=== PATIENT | male | born 1930 | race Caucasian/White ===

== ENCOUNTER 2018-02-01 16:36 | Inpatient (IN) | payer MEDICARE, OTHER ==
[~2018-02-01] VITALS: Ht 167.6 cm; Wt 71.7 kg
[~2018-02-01 16:36] MED LIST: ACETAMINOPHEN-1 EAC1 PO; AMLODIPINE BESYL5 MG PO; ASPIR 8181 MG PO; ASPIRIN325 PO; LIPITOR20 MG PO; NITROGLYCERIN0.4 MG SUBLING; NORVASC5 MG PO; OMEPRAZOLE40 MG PO; PLAVIX 75 MG TA75 M1 PO; PRINIVIL20 MG PO; TESSALON PERLE100 MG PO; TOPROL XL50 MG PO; VENTOLIN HFA 1818 GM INH
[2018-02-01 16:40] VITALS: BP 185/97
[2018-02-01] MEDS ORDERED: NORVASC5 MG PO (17:09)
[2018-02-01] MEDS ORDERED: PLAVIX 75 MG TA75 M1 PO (17:09)
[2018-02-01] MEDS ORDERED: LIPITOR 20 MG T20 M1 PO (17:09)
[2018-02-01] MEDS ORDERED: TIMOLOL GL0.5 %/5 M1 OPHTHALMIC (17:10)
[2018-02-01 20:15] VITALS: BP 185/97
[2018-02-01 20:30] VITALS: BP 134/56
[2018-02-02 08:00] VITALS: BP 129/45
[2018-02-02 12:00] VITALS: BP 119/68
[2018-02-02 16:00] VITALS: BP 163/77
[2018-02-02 18:40] LABS: ABSOLUTE BASOPHILS 0.1 thou/uL (0.0-0.2); ABSOLUTE EOSINOPHILS 0.3 thou/uL (0.0-0.7); ABSOLUTE LYMPHOCYTES 1.6 thou/uL (0.8-5.3); ABSOLUTE MONOCYTES 0.7 thou/uL (0.0-1.2); ABSOLUTE NEUTROPHILS 4.2 thou/uL (1.6-8.1); BASOPHILS 1.1 %; EOSINOPHILS 3.9 %; HEMATOCRIT 39.7 % (42.0-52.0); HEMOGLOBIN 13.3 gm/dL (14.0-18.0); MCH 31.7 pg (26.0-34.0); MCHC 33.5 g/dL (28.0-37.0); MCV 94.6 fL (80.0-100.0); MONOCYTES 9.8 %; NUCLEATED RBCS 0 /100WBC; PLATELET COUNT* 215 thou/uL (150-400); POLYS 62.2 %; RDW-CV 13.4 % (10.5-14.5); WBC 6.8 thou/uL (4.0-11.0)
[2018-02-03] VITALS: BP 136/64
[2018-02-03 04:00] VITALS: BP 136/61
[2018-02-03 07:49] LABS: CALCIUM 8.7 mg/dL (8.5-10.1); CREATININE 1.7 mg/dL (0.6-1.3); POTASSIUM 4.3 mmol/L (3.5-5.1)
[2018-02-03 08:55] VITALS: BP 162/51
[2018-02-03 12:00] VITALS: BP 147/77
--- NOTE | 2018-02-03 14:58 | EKG ---
[place] [address] ELECTROCARDIOGRAM REPORT Name: LUZMA ALCAZAR Room: [address] ADM IN M.R.#: [id number] Admission: 02/01/18 Attend Phys: Mary Anne Mitchell Discharge: Date of : 32 Report #: [id number] THIS REPORT FOR: //name// [facility] Test Date: 2018-02-02 Test Time: 12:27:49 Pat Name: LUZMA ALCAZAR Department: Room: [address] Gender: M Deputy County Clerk: GURDEEP CHAKRABORTY : 1930 Requested By: Teofilo Golden Order Number: [id number] Dari MD: Evelio Sharif Measurements Intervals [place] Rate: 67 P: 45 ND: 245 QRS: -37 QRSD: 92 T: 7 QT: 387 QTc: 409 Interpretive Statements Sinus rhythm Prolonged ND interval Inferior infarct, old, possible Low voltage in precordial leads Compared to ECG 12/11/2016 16:52:51 Ventricular premature complex(es) no longer present Myocardial infarct finding still present Electronically Signed On 02-03-2018 14:58:23 CDT by Evelio Sharif [email or web address] <ELECTRONICALLY SIGNED> By: Evelio Sharif MD, FACC 02/03/18 1458 1227 1227 Evelio Sharif MD, FACC /EPI
[2018-02-03 16:00] VITALS: BP 151/76
[2018-02-03 19:09] LABS: CALCIUM 8.8 mg/dL (8.5-10.1); CREATININE 1.8 mg/dL (0.6-1.3); MAGNESIUM 1.7 mg/dL (1.8-2.4); POTASSIUM 4.5 mmol/L (3.5-5.1)
[2018-02-04] VITALS: BP 164/76
[2018-02-04 04:45] LABS: CALCIUM 8.9 mg/dL (8.5-10.1); CREATININE 1.6 mg/dL (0.6-1.3); POTASSIUM 4.5 mmol/L (3.5-5.1)
[2018-02-04 08:45] VITALS: BP 165/77
[2018-02-04 12:00] VITALS: BP 130/84
[2018-02-04 16:38] VITALS: BP 163/76
[2018-02-04 19:42] VITALS: BP 160/78
[2018-02-04 23:51] VITALS: BP 99/54
[2018-02-05 04:38] VITALS: BP 128/62
[2018-02-05 07:50] VITALS: BP 160/76
[2018-02-05 12:00] VITALS: BP 146/76
[2018-02-05 16:14] VITALS: BP 146/76
[2018-02-05 16:28] VITALS: BP 146/76
--- NOTE | 2018-02-05 16:53 | EKG ---
[place] [address] ELECTROCARDIOGRAM REPORT Name: LUZMA ALCAZAR Room: [address] ADM IN M.R.#: [id number] Admission: 02/01/18 Attend Phys: Mary Anne Mitchell Discharge: Date of : 31 Report #: [id number] THIS REPORT FOR: //name// [facility] Test Date: 2018-02-03 Test Time: 18:07:33 Pat Name: LUZMA ALCAZAR Department: Room: [address] Gender: M Deputy Commissioner: : 1930 Requested By: Mona Newton Order Number: [id number] Dari MD: Luzma Pizarro Measurements Intervals [place] Rate: 94 P: 46 NV: 212 QRS: -38 QRSD: 90 T: 33 QT: 372 QTc: 466 Interpretive Statements Sinus rhythm Ventricular bigeminy Borderline prolonged NV interval Probable left atrial enlargement Left axis deviation Low voltage, precordial leads Probable anteroseptal infarct, old Baseline wander in lead(s) V4 Compared to ECG 02/02/2018 12:27:49 Ventricular premature complex(es) now present Left-axis deviation now present Myocardial infarct finding still present Electronically Signed On 02-05-2018 16:53:19 CDT by Luzma Pizarro [email or web address] <ELECTRONICALLY SIGNED> By: Luzma Pizarro MD, [facility] 02/05/18 1653 06 06 Luzma Pizarro MD, [facility] /EPI
--- NOTE | 2018-02-08 11:39 | CON ---
[address] [address] CONSULTATION Name: LUZMA ALCAZAR Room: [address] IN M.R.#: [id number] Admission: 02/01/18 Attend Phys: Mary Anne Mitchell Discharge: 02/05/18 Date of : 31 Report #: [id number] THIS REPORT FOR: //name// CC: Rodrigo Lira MD [facility] Teofilo Golden Cardiology Consultation INDICATION: Bradycardia. HISTORY OF PRESENT ILLNESS: The patient is a very pleasant 87-year-old gentleman with history of coronary artery disease status post coronary artery bypass grafting remotely. He was admitted to the hospital with acute onset posterior left knee pain. Venous Doppler shows no evidence of blood clot. Arterial Dopplers are pending. The area behind his knee is slightly tender without obvious swelling. He has significant peripheral vascular disease involving the left lower extremity with claudication on half a block ambulation. Pulses are not palpable in the foot. The right leg, he does not have claudication with. His pulses are palpable in the right leg. He is not having any resting pain in the lower extremity to suggest resting claudication. He denies chest pain. He had possibly an episode of bradycardia this morning, although telemetry and EKG show no evidence of bradycardia. The patient is currently not bradycardic. He is on appropriate cardiac medications for his coronary artery disease. PAST MEDICAL HISTORY: 1. Coronary artery disease. 2. Coronary artery bypass grafting remotely 3. Peripheral vascular disease. 4. Hypertension. 5. Hyperlipidemia. ALLERGIES: None documented. HOME MEDICATIONS: Amlodipine 5 mg daily, atorvastatin 20 mg at bedtime, Plavix 75 mg daily, lisinopril 40 mg daily, metoprolol succinate 50 mg daily, Nitrostat sublingual p.r.n., timolol eyedrops. FAMILY HISTORY: Noncontributory. SOCIAL HISTORY: The patient quit smoking in 2005. He does not drink alcohol. REVIEW OF SYSTEMS: A 14-point review of systems is positive for claudication. He reports dyspnea without orthopnea or paroxysmal nocturnal dyspnea. 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 Otherwise, [place] [address] CONSULTATION Name: LUZMA ALCAZAR Room: [address]#: [id number] Admission: 02/01/18 Attend Phys: Mary Anne Mitchell Discharge: 02/05/18 Date of : 31 Report #: [id number] systems unremarkable. PHYSICAL EXAMINATION: VITAL SIGNS: Stable. Blood pressure 119/68, pulse 85 and regular. 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 HEENT: Head is normocephalic, atraumatic. Extraocular muscles intact. Mucous membranes are moist. NECK: Shows no jugular venous distention. Cannot appreciate bruit. CHEST: Reveals clear lung millan without wheezes or rales. CARDIAC: Reveals a regular rhythm, normal S1, S2. I do not appreciate gallop or murmur. ABDOMEN: Reveals normal bowel sounds. The abdomen is soft and nontender. EXTREMITIES: Shows no edema. Peripheral pulses in the right foot are 2+. Peripheral pulses left foot are absent. There is no gangrene or discoloration. The feet are warm to touch. DIAGNOSTIC DATA: A 12-lead EKG shows sinus rhythm without acute ST or T-wave abnormality. IMPRESSION AND RECOMMENDATIONS: 1. Possible bradycardia, presently resolved. We would not pursue this further at this time. 2. Coronary artery disease, presently stable. 3. Peripheral vascular disease. The patient appears to have stable claudication. Continue Plavix and aspirin. 4. Hypertension, adequately controlled on current regimen. 5. Hyperlipidemia. Continue atorvastatin at current dose. At this time, the patient appears stable from cardiac standpoint. I do not plan any further evaluation at this time. <ELECTRONICALLY SIGNED> By: Evelio Sharif MD, FACC 02/08/18 1139 1540 0300Microsina Sharif MD, FACC /nt
--- NOTE | 2018-02-19 12:02 | H ---
[address] [address] HISTORY AND PHYSICAL Name: LUZMA ALCAZAR Room: [address] IN .R.#: [id number] Admission: 02/01/18 Attend Phys: Mary Anne Mitchell Discharge: 02/05/18 Date of : 31 Report #: [id number] THIS REPORT FOR: //name// CC: Rodrigo Golden REQUESTING PHYSICIAN: Teofilo Golden DO. REASON FOR CONSULTATION: Peripheral vascular disease. HISTORY OF PRESENT ILLNESS: The patient is a very pleasant 87-year-old white male who is deaf. He presents to the ER with left knee pain. He was unable to stand on at home. He was brought to the ER. Further evaluation revealed likely some orthopedic issues, but also occluded left SFA and popliteal artery. It is difficult to assess whether or not he has been having claudication, but it does not sound like he has been walking very much either. Again, due to him being deaf, it is difficult to get a full history. He does not have family with him today that can translate for me. Remainder of history is obtained from chart. PAST MEDICAL HISTORY: Per the chart, coronary artery disease, status post bypass; neck surgery; hypertension; deaf. HOME MEDICATIONS: Include Codeine, aspirin, Norvasc, Lipitor, Plavix, Prinivil, Toprol and Nitrostat. FAMILY HISTORY: Noncontributory. SOCIAL HISTORY: The patient denies tobacco or drug use. He does drink alcohol occasionally. ALLERGIES: No known drug allergies. PHYSICAL EXAMINATION: GENERAL: The patient is in no acute distress. He is alert and oriented. VITAL SIGNS: Afebrile. Vital signs stable. HEENT: Normocephalic, atraumatic. NECK: Supple. HEART: Regular. LUNGS: Clear. ABDOMEN: Soft, nontender, nondistended. EXTREMITIES: Warm and well perfused. His feet are pink and viable bilaterally. Cannot palpate pedal pulses bilaterally. NEUROLOGIC: Grossly intact. ASSESSMENT: 1. Deaf patient. 2. Orthopedic issues, [place] [address] HISTORY AND PHYSICAL Name: LUZMA ALCAZAR Room: [address] IN [facility]#: [id number] Admission: 02/01/18 Attend Phys: Mary Anne Mitchell Discharge: 02/05/18 Date of : 31 Report #: [id number] 3. Occluded left superficial femoral artery and popliteal on arterial duplex. PLAN: 1. We will obtain a CTA aorta with runoff to evaluate peripheral vascular disease further. 2. Likely will need revascularization if orthopedic procedure planned to make sure there is adequate blood flow for healing. <ELECTRONICALLY SIGNED> By: Wong Mora DO 02/19/18 1202 0747 0829MD curt Barksdale
== END 2018-02-05 18:25 | disposition home health service (06) | DRG 554 ==
LOC: M.ERS 16:36 → M.3W 17:46 → M.TBA-ER 17:46 → M.3W 20:07
PROVIDERS: Family Medicine; Internal Medicine; Orthopaedic Surgery; Surgery Vascular Surgery; ADMIT Internal Medicine
PROC: 3E0U3BZ Introduction of Anesthetic Agent into Joints, Percutaneous Approach (ICD-10-PCS; principal; 2018-02-03)
PROC: 3E0U33Z Introduction of Anti-inflammatory into Joints, Percutaneous Approach (ICD-10-PCS; principal; 2018-02-03)
DX: M17.12 Unilateral primary osteoarthritis, left knee (principal); N17.9 Acute kidney failure, unspecified; I12.9 Hypertensive chronic kidney disease with stage 1 through stage 4 chronic kidney disease, or unspecified chronic kidney disease; N18.3 Chronic kidney disease, stage 3 (moderate); I10 Essential (primary) hypertension; H91.90 Unspecified hearing loss, unspecified ear; I73.9 Peripheral vascular disease, unspecified; E78.5 Hyperlipidemia, unspecified; I25.10 Atherosclerotic heart disease of native coronary artery without angina pectoris; Z95.1 Presence of aortocoronary bypass graft; Z79.02 Long term (current) use of antithrombotics/antiplatelets; Z79.899 Other long term (current) drug therapy; Z87.891 Personal history of nicotine dependence; Z80.8 Family history of malignant neoplasm of other organs or systems; Z84.1 Family history of disorders of kidney and ureter; Z23 Encounter for immunization

== ENCOUNTER 2018-10-31 12:00 | Emergency (ER) | payer MEDICARE, OTHER ==
[~2018-10-31] VITALS: Ht 162.6 cm; Wt 71.2 kg
[~2018-10-31 12:00] MED LIST changes: +LIPITOR 20 MG T20 M1 PO; +TIMOLOL GL0.5 %/5 M1 OPHTHALMIC
[2018-10-31] MEDS ORDERED: CYCLOBENZAPRINE5 MG PO (13:15)
[2018-10-31] MEDS ORDERED: PREDNISONE 20 M20 M1 PO (13:15)
[2018-10-31] MEDS ORDERED: NORCO 5-325 TA1 EAC1 PO (13:15)
[2018-10-31 13:32] VITALS: BP 158/51
== END 2018-10-31 13:34 | disposition still patient (30) ==
LOC: M.ERS 12:00
DX: M79.18 Myalgia, other site (principal); M54.2 Cervicalgia; M25.511 Pain in right shoulder; I25.10 Atherosclerotic heart disease of native coronary artery without angina pectoris; I10 Essential (primary) hypertension; E11.9 Type 2 diabetes mellitus without complications; Z86.73 Personal history of transient ischemic attack (TIA), and cerebral infarction without residual deficits

== ENCOUNTER 2019-08-02 22:27 | Inpatient (IN) | payer MEDICARE, OTHER ==
[~2019-08-02] VITALS: Ht 167.6 cm; Wt 60.3 kg
[~2019-08-02 22:27] MED LIST changes: +CYCLOBENZAPRINE5 MG PO; +NORCO 5-325 TA1 EAC1 PO; +PREDNISONE 20 M20 M1 PO
[2019-08-02 22:41] VITALS: BP 191/87
[2019-08-02 23:15] LABS: ABSOLUTE BASOPHILS 0.1 thou/uL (0.0-0.2); ABSOLUTE EOSINOPHILS 0.2 thou/uL (0.0-0.7); ABSOLUTE LYMPHOCYTES 1.4 thou/uL (0.8-5.3); ABSOLUTE NEUTROPHILS 7.9 thou/uL (1.6-8.1); BASOPHILS 0.9 %; EOSINOPHILS 2.1 %; HEMATOCRIT 36.9 % (42.0-52.0); HEMOGLOBIN 12.4 gm/dL (14.0-18.0); LYMPHOCYTES 13.6 %; MCH 30.3 pg (26.0-34.0); MCHC 33.5 g/dL (28.0-37.0); MCV 90.2 fL (80.0-100.0); MONOCYTES 9.6 %; NUCLEATED RBCS 0 /100WBC; PLATELET COUNT* 266 thou/uL (150-400); POLYS 73.8 %; RBC 4.08 mil/uL (4.50-6.00); RDW-CV 15.8 % (10.5-14.5); WBC 10.7 thou/uL (4.0-11.0)
[2019-08-02 23:24] LABS: CALCIUM 8.4 mg/dL (8.5-10.1); POTASSIUM 4.3 mmol/L (3.5-5.1)
[2019-08-02 23:34] LABS: ALBUMIN 3.7 g/dL (3.4-5.0); MAGNESIUM 1.5 mg/dL (1.8-2.4); TOTAL BILIRUBIN 0.5 mg/dL (<0.1-1.0); TOTAL PROTEIN 7.5 g/dL (6.4-8.2)
[2019-08-03 01:25] VITALS: BP 131/62
[2019-08-03 04:00] VITALS: BP 152/72
[2019-08-03 08:00] VITALS: BP 143/71
--- NOTE | 2019-08-03 10:20 | CON ---
[address] [address] CONSULTATION Name: LUZMA ALCAZAR Room: [address] IN M.R.#: [id number] Admission: 08/02/19 Attend Phys: Mona Newton MD Discharge: Date of : 31 Report #: [id number] THIS REPORT FOR: //name// cc: Rodrigo Mckeon David J. DO ~ THIS REPORT FOR: //name// CC: Rodrigo Newton DATE OF SERVICE: 08/03/2019 CARDIOLOGY CONSULTATION HISTORY OF PRESENT ILLNESS: The patient is an 88-year-old white male who I was asked to see in the hospital today after he complained of chest pain. The patient has an extensive past medical history. Unfortunately, he is deaf. There are no family members available. There is no nerve specialist at this time. The patient was actually admitted here to [facility] in 12/2005. He had a history of coronary artery bypass surgery in 2005. He was ruled out for myocardial infarction and was sent home. He was admitted here in 2014 with chest pain. He was having difficulty swallowing. He was found to have a Schatzki's ring that was dilated. He was found to have a hiatal hernia. He was admitted here in 2016 with abdominal pain. He was again found to have esophageal stricture. He was felt to have a possible TIA at that time with left-sided weakness. He was admitted here in 2017 with knee pain. He was seen by my partner, Dr. Sharif. He was found to have significant PAD with claudication. He does have a history of hypertension. He quit smoking years ago. 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 He was felt to have arthritis in his knee. The patient was brought to the Emergency Room last night. He complained of chest discomfort. The pain radiating to his back. He took nitroglycerin and called paramedics. The pain resolved. He has been having episodes of shortness of breath. I was asked to see him for further evaluation and treatment. PAST MEDICAL HISTORY: Otherwise significant for neck surgery, diabetes and chronic renal insufficiency. He has had a rosa maria placed in his left leg. 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 CURRENT MEDICATIONS: Consist of Lipitor, Plavix, lisinopril, metoprolol, and amlodipine. ALLERGIES: He has no known drug allergies. REVIEW OF SYSTEMS: [place] [id number] CONSULTATION Name: LUZMA ALCAZAR Room: [address] IN [facility]#: [id number] Admission: 08/02/19 Attend Phys: Mona Newton MD Discharge: Date of : 31 Report #: [id number] PHYSICAL EXAMINATION: GENERAL: Revealed an elderly male, lying in bed. He appeared in no distress. VITAL SIGNS: His blood pressure was 140/60, pulse is 80. He was afebrile. HEENT: He was anicteric. Conjunctivae pink. Mucous membranes moist. NECK: Veins do not appear distended. CHEST: Clear to auscultation. CARDIOVASCULAR: Regular rate and rhythm. ABDOMEN: Soft. EXTREMITIES: Had no edema. Dorsalis pedis pulse cannot be palpated. SKIN: Cool and dry. NEUROLOGIC: Nonfocal. LYMPH: No adenopathy. MUSCULOSKELETAL: No joint effusion. RADIOLOGICAL DATA: His ECG on admission showed a sinus rhythm, ventricular bigeminy noted. No significant ST or T-wave changes. His workup, he actually had an echocardiogram in 2017 that showed ejection fraction of 60%, aortic sclerosis. Nuclear stress test in 2014 here at [facility] using Lexiscan showed no evidence of ischemia with an ejection fraction of 74%. His lab work last night showed elevated right hemidiaphragm, otherwise unremarkable. Previous carotid Doppler study in 2017 here at [facility] showed mild bilateral plaque formation, no high grade stenosis. LABORATORY DATA: Last night, sodium 138, BUN 27, creatinine is 2.0, glucose 149. His lipase was 691, SGOT 39, bilirubin 0.5, SGPT 57. His troponins all 0.06. His white blood cell count was 10.7, hematocrit 36.9. IMPRESSION AND RECOMMENDATIONS: 1. Epigastric pain. Possible gastroesophageal reflux disease. No evidence of acute myocardial infarction. 2. Previous coronary artery bypass surgery. No recent myocardial infarction. I would continue Plavix and beta juju. 3. Hypertension. The patient is on LORIN inhibitor, beta juju and calcium juju. 4. Hyperlipidemia. The patient is on a statin drug. 5. Deafness. 6. History of esophageal stricture with previous dilatation. 7. Chronic kidney disease. 8. Glucose intolerance. 9. Elevated lipase. Consider pancreatitis. <ELECTRONICALLY SIGNED> By: Rodrigo Dumont MD, FACC 08/03/19 1020 0922 0946Dajovan Dumont MD, FACC /nt
--- NOTE | 2019-08-03 10:39 | EKG ---
[place] [address] ELECTROCARDIOGRAM REPORT Name: LUZMA ALCAZAR Room: [address] ADM IN M.R.#: [id number] Admission: 08/02/19 Attend Phys: Mona Newton, Discharge: Date of : 31 Date of Service: 08/02/19 2234 Report #: [id number] THIS REPORT FOR: //name// [facility] ED Test Date: 2019-08-02 Test Time: 22:34:05 Pat Name: LUZMA ALCAZAR Department: Room: [facility] Gender: M Veneer Taper: 17 : 1930 Requested By: Deniz Frausto Order Number: [id number] MD: Rodrigo Dumont Measurements Intervals [place] Rate: 96 P: 15 [place]: 196 QRS: -33 QRSD: 90 T: 8 QT: 389 QTc: 492 Interpretive Statements Sinus rhythm septal q waves Ventricular bigeminy Left axis deviation Borderline low voltage, extremity leads septal infarct, old Compared to ECG 02/03/2018 18:07:33 No significant changes Electronically Signed On 08-03-2019 10:37:43 CDT by Rodrigo Dumont [email or web address] <ELECTRONICALLY SIGNED> By: Rodrigo Dumont MD, FACC 08/03/19 1037 223 2234 Rodrigo Dumont MD, FACC /EPI
[2019-08-03 11:29] VITALS: BP 137/78
--- NOTE | 2019-08-03 13:36 | NUR ---
ASSUMED PT CARE AT 0800, UP SBA, O2 AT 90'S RA. TRACING SR PVC ON TELE. PT COMMUNICATE BY WRITING, PT DEAF. PT COMPAINS OF DULL CHEST PAIN RATE 3. DIDNT WANT ANY PAIN MEDS. PT HAD CARDIOLOGY CONSULT. DR URRUTIA ASK IF THE FAMILY HAS KNOWN PATIENT CASE MANAGER, AND CAN COME TOMORROW. THIS RN TALKED WITH SON IN LAW, HE SAYS PT DONT USE SIGN LANGUAGE, HE WILL COME TOMORROW HE GOES WITH PT MOST OF HIS APPOINTMENT, AND CAN ANSWER. HOUSE SUP NOTIFIED. PT HAD US ABDOMEN, FOR HEART ECHO. VSS, AM ASSESSMENT CHARTED, MEDS GIVEN PER MAR, CALL LIGHT WITHIN REACH, WILL CONTINUE TO MONITOR.
[2019-08-03 16:00] VITALS: BP 132/69
[2019-08-03 19:30] VITALS: BP 131/53
--- NOTE | 2019-08-03 19:30 | NUR ---
RECEIVED REPORT AND ASSUMED CARE OF PT, ASSESSMENT COMPLETED. PT DEAF, COMMUNICATED WITH WHITE BOARD. DENIES CHEST PAIN AT PRESENT TIME. TELEMETRY ON SHOWING SR WITH BORDER LINE 1ST AVB. WILL CONT TO MONITOR AND ASSIST NEEDED.
[2019-08-04] VITALS: BP 148/67
[2019-08-04 04:00] VITALS: BP 157/63
[2019-08-04 05:41] LABS: HEMATOCRIT 36.9 % (42.0-52.0); HEMOGLOBIN 12.2 gm/dL (14.0-18.0); MCH 29.8 pg (26.0-34.0); MCHC 33.1 g/dL (28.0-37.0); MCV 90.1 fL (80.0-100.0); MPV 8.2 fl. (7.2-11.1); RBC 4.1 mil/uL (4.50-6.00); RDW-CV 15.6 % (10.5-14.5); WBC 11.1 thou/uL (4.0-11.0)
[2019-08-04 06:15] LABS: ANION GAP 9 mmol/L (7-16); BUN 23 mg/dL (7-18); CALCIUM 8.5 mg/dL (8.5-10.1); CHLORIDE 100 mmol/L (98-107); CO2 25 mmol/L (21-32); CREATININE 1.6 mg/dL (0.6-1.3); GLUCOSE 108 mg/dL (70-99); LIPASE 381 U/L (73-393); MAGNESIUM 1.6 mg/dL (1.8-2.4); POTASSIUM 4.6 mmol/L (3.5-5.1); SODIUM 134 mmol/L (136-145); TROPONIN-I LEVEL <0.06 ng/mL (<0.06)
--- NOTE | 2019-08-04 07:10 | NUR ---
SLEPT WELL TONIGHT. DENIES CHEST PAIN. NO CHANGE IN ASSESSMENT. TELEMETRY SHOWING SR WITH FREQ PVC TO BIGEMINY. HS GOALS OF REST AND SAFETY ACHIEVED. HOURLY ROUNDING OBSERVED.
[2019-08-04 08:15] VITALS: BP 138/65
--- NOTE | 2019-08-04 10:58 | NUR ---
CM spoke with Pt's dtr via phone. Pt is A&O. Resides at home alone. Independent and active. Pt has 2 canes that he uses for mobility. No hx of HH or SNF. CM updated dtr that Pt may be ready to dc later today, Pt's son will provide dc transportation. Nurse to contact Pt's dtr or Oneal EDMONDS, to arrange dc transport and time.
--- NOTE | 2019-08-04 10:58 | EKG ---
[place] [address] ELECTROCARDIOGRAM REPORT Name: HAYDENDIANLUZMA Room: [address] ADM IN M.R.#: [id number] Admission: 08/02/19 Attend Phys: Mona Newton, Discharge: Date of : 31 Date of Service: 08/02/19 2333 Report #: [id number] THIS REPORT FOR: //name// [facility] ED Test Date: 2019-08-02 Test Time: 23:33:19 Pat Name: LUZMA ALCAZAR Department: Room: [address] Gender: M Manager English: CONY : 1930 Requested By: Deniz Frausto Order Number: [id number] Reading MD: Luzma Pizarro Measurements Intervals [place] Rate: 91 P: 54 [place]: 210 QRS: -25 QRSD: 87 T: 16 QT: 414 QTc: 510 Interpretive Statements Sinus rhythm Ventricular bigeminy Borderline prolonged [place] interval Borderline left axis deviation Low voltage, extremity leads Probable anteroseptal infarct, old Compared to ECG 08/02/2019 22:34:05 Q waves no longer present Myocardial infarct finding still present Electronically Signed On 08-04-2019 10:57:17 CDT by Luzma Pizarro [email or web address] <ELECTRONICALLY SIGNED> By: Luzma Pizarro MD, [facility] 08/04/19 1057 2333 2333 Luzma Pizarro MD, [facility] /EPI
--- NOTE | 2019-08-04 15:55 | 2DMMODE ---
[place] [address] 2 D/M-MODE ECHOCARDIOGRAM Name: LUZMA ALCAZAR Room: [address] IN .R.#: [id number] Admission: 08/02/19 Attend Phys: Mona Newton, Discharge: Date of : 31 Date of Service: 08/04/19 1554 Report #: [id number] THIS REPORT FOR: cc: Rodrigo Mckeon,Rodrigo Larry,Luzma Horta MD [facility] ~ APPROVED REPORT Study performed: 08/04/2019 11:02:09 EXAM: Comprehensive 2D, Doppler, and color-flow Echocardiogram Patient Location: In-Patient Room #: [facility] Status: routine BSA: 1.69 HR: 103 bpm BP: 157/63 mmHg Rhythm: NSR Other Information Study Quality: Good Indications Chest Pain 2D Dimensions IVSd: 15.16 (7-11mm) LVOT Diam: 20.77 (18-24mm) LVDd: 39.12 mm PWd: 10.75 (7-11mm) Ascending Ao: 31.30 (22-36mm) LVDs: 25.74 (25-40mm) Aortic Root: 33.93 mm Volumes Left Atrial Volume (Systole) LA ESV Index: 22.80 mL/m2 Aortic Valve AoV Peak Arvind.: 1.48 m/s AO Peak Gr.: 8.75 mmHg LVOT Max P.41 mmHg AO Mean Gr.: 5.19 mmHg LVOT Mean P.10 mmHg LVOT Max V: 0.78 m/s AO V2 VTI: 28.61 cm LVOT Mean V: 0.48 m/s LETICIA (VTI): 1.81 cm2 LVOT V1 VTI: 15.26 [place] [address] 2 D/M-MODE ECHOCARDIOGRAM Name: LUZMA ALCAZAR Room: [address] IN .R.#: [id number] Admission: 08/02/19 Attend Phys: Mona Newton, Discharge: Date of : 31 Date of Service: 08/04/19 1554 Report #: [id number] Mitral Valve E/A Ratio: 0.55 MV Decel. Time: 120.17 ms MV E Max Arvind.: 0.56 m/s MV PHT: 34.85 ms MVA (PHT): 6.31 cm2 TDI E/Lateral E': 5.60 E/Medial E': 8.00 Medial E' Arvind.: 0.07 m/s Lateral E' Arvind.: 0.10 m/s Pulmonary Valve PV Peak Arvind.: 1.71 m/s PV Peak Gr.: 11.71 mmHg Tricuspid Valve RAP Estimate: 5.00 mmHg TR Peak Gr.: 17.27 mmHg RVSP: 22.00 mmHg PA Pressure: 22.00 mmHg Left Ventricle The left ventricle is normal size. There is normal LV segmental wall motion. Mild concentric left ventricular hypertrophy. Left ventricular systolic function is normal. The left ventricular ejection fraction is within the normal range. LVEF is 60%. Grade I - abnormal relaxation pattern. Right Ventricle The right ventricle is normal size. The right ventricular systolic function is normal. Atria The left atrium size is normal. The right atrium size is normal. Aortic Valve Moderate aortic valve sclerosis. No aortic regurgitation is present. No hemodynamically significant valvular aortic stenosis. Mitral Valve There is mitral annular calcification. There is no mitral valve regurgitation noted. No evidence of mitral valve stenosis. Tricuspid Valve The tricuspid valve is normal in structure. Mild tricuspid regurgitation. [place] [address] 2 D/M-MODE ECHOCARDIOGRAM Name: LUZMA ALCAZAR Room: [address]#: [id number] Admission: 08/02/19 Attend Phys: Mona Newton, Discharge: Date of : 32 Date of Service: 08/04/19 1554 Report #: [id number] Pulmonic Valve The pulmonary valve is normal in structure. Trace pulmonic regurgitation. Great Vessels The aortic root is normal in size. IVC is normal in size and collapses >50% with inspiration. Pericardium There is no pericardial effusion. <Conclusion> The left ventricle is normal size. Mild concentric left ventricular hypertrophy. Left ventricular systolic function is normal. The left ventricular ejection fraction is within the normal range. LVEF is 60%. Grade I - abnormal relaxation pattern. The right ventricle is normal size. The left atrium size is normal. Moderate aortic valve sclerosis. No aortic regurgitation is present. No hemodynamically significant valvular aortic stenosis. There is mitral annular calcification. There is no mitral valve regurgitation noted. No evidence of mitral valve stenosis. The tricuspid valve is normal in structure. Mild tricuspid regurgitation. No pulmonary hypertension. IVC is normal in size and collapses >50% with inspiration. There is no pericardial effusion. There is normal LV segmental wall motion. <ELECTRONICALLY SIGNED> By: Luzma Pizarro MD, FACC 08/04/19 1554 1554 1554 Luzma Pizarro MD, FACC /INF
[2019-08-04 16:39] VITALS: BP 146/59
[2019-08-04 16:40] VITALS: BP 146/59
[2019-08-04 20:00] VITALS: BP 152/65
[2019-08-05] VITALS: BP 151/70
[2019-08-05 02:07] LABS: GLYCOHEMOGLOBIN (HGB A1C) 6.2 % (4.8-5.6)
[2019-08-05 04:00] VITALS: BP 127/61; BP 147/67
[2019-08-05 04:01] LABS: HEMATOCRIT 33.7 % (42.0-52.0); HEMOGLOBIN 11.5 gm/dL (14.0-18.0); MCH 30.5 pg (26.0-34.0); MCHC 34.2 g/dL (28.0-37.0); RBC 3.79 mil/uL (4.50-6.00); RDW-CV 15.4 % (10.5-14.5)
[2019-08-05 04:49] LABS: ALBUMIN 2.8 g/dL (3.4-5.0); CALCIUM 8.5 mg/dL (8.5-10.1); CREATININE 1.4 mg/dL (0.6-1.3); POTASSIUM 4.2 mmol/L (3.5-5.1); TOTAL BILIRUBIN 1.1 mg/dL (<0.1-1.0); TOTAL PROTEIN 6.7 g/dL (6.4-8.2)
--- NOTE | 2019-08-05 06:32 | NUR ---
ASSESSMENT COMPLETED CHARTED. MEDICATIONS ADMINISTERED PER JUN. HOURLY ROUNDING IN PLACE FOR SAFETY. CALL LIGHT WITHIN REACH. 20G IV PLACED TO R AC FOR AM CT. NO C/O PAIN OR DISCOMFORT NOTED BY PT.
[2019-08-05 08:10] VITALS: BP 155/73
--- NOTE | 2019-08-05 08:40 | NUR ---
Pt kurt held yesterday, plan CT abd today for further eval of liver mass.
[2019-08-05 10:39] VITALS: BP 165/76
[2019-08-05 16:00] VITALS: BP 143/66
--- NOTE | 2019-08-05 17:47 | NUR ---
PATIENT DOWN FOR CTA ABD THIS AM, RESULTS NOTIFIED TO DR. CONDON. ORDERS RECEIVED TO CONS ONC, SPOKE WITH DR. MESA AND DR. MESA CALLED PATIENTS SON TO DISCUSS PLAN OF CARE. TECHNICAL PRODUCER REMAINS IN PLACE. IV RESTARTED TO RIGHT FOREARM FOR CTA THIS AM, ATTEMPTED AC BUT NOT SUCCESSFUL. UP WITH SBA. MARKER BOARD USED TO COMMUNICATE WITH PATIENT. POSSIBLE DISCHARGE TOMORROW.
[2019-08-05 20:00] VITALS: BP 160/72
[2019-08-06] VITALS: BP 141/71
[2019-08-06 04:00] VITALS: BP 135/70
--- NOTE | 2019-08-06 06:21 | NUR ---
ASSESSMENTS COMPLETED CHARTED, MEDICATIONS ADMINISTERED PER MAR. NO C/O PAIN OR DISCOMFORT NOTED BY PT. HOURLY ROUNDING COMPLETED FOR SAFETY, CALL LIGHT WITHIN REACH.
[2019-08-06 06:46] LABS: HEMATOCRIT 30.8 % (42.0-52.0); HEMOGLOBIN 10.5 gm/dL (14.0-18.0); MCH 30.7 pg (26.0-34.0); MCHC 34.1 g/dL (28.0-37.0); MCV 90.2 fL (80.0-100.0); MPV 8.6 fl. (7.2-11.1); RBC 3.41 mil/uL (4.50-6.00); RDW-CV 15.4 % (10.5-14.5); WBC 7.6 thou/uL (4.0-11.0)
[2019-08-06 07:00] LABS: ALBUMIN 2.5 g/dL (3.4-5.0); CREATININE 1.5 mg/dL (0.6-1.3); MAGNESIUM 1.8 mg/dL (1.8-2.4); TOTAL BILIRUBIN 0.8 mg/dL (<0.1-1.0); TOTAL PROTEIN 6.1 g/dL (6.4-8.2)
[2019-08-06 08:00] VITALS: BP 146/59
[2019-08-06 12:18] VITALS: BP 152/63
[2019-08-06 14:56] VITALS: BP 146/59
--- NOTE | 2019-08-06 16:13 | NUR ---
RECEIVED REPORT FROM SHMUEL RN. ASSUMED CARE OF PT AROUND 0730. PT A&O X4. SENIOR TREASURY ANALYST IN PLACE TRACING ST WITH 1ST DEGREE THIS AM, TRANSITIONING TO TRIGEMENY LATER IN THE MORNING. CARDIOLOGY AND HOSPITALIST NOTIFIED, NO NEW ORDERS RECEIVED. AM ASSESSMENT AND VITALS COMPLETED CHARTED. MEDS PER EMAR. PT CLEARED TO DC. DISCHARGE SUMMARY COMPLETED CHARTED. DISCHARGE SUMMARY GONE OVER WITH PT, PT COMMUNICATES UNDERSTANDING. NO NEW PRESCRIPTIONS THIS STAY. UPDATE GIVEN TO POWER, SON IN LAW - HE COMMUNICATED UNDERSTANDING WITH SIDRA. ATTEMPTED TO MAKE F/U APPOINTMENT FOR PT WITH DR MESA - HAD TO LEAVE A MESSAGE. FAMILY ALSO GIVEN DR MESA'S NUMBER AND AWARE PT NEEDS TO BE SEEN WITHIN A WEEK. IV AND SENIOR TREASURY ANALYST REMOVED. ALL BELONGINGS GATHERED AND SENT HOME WITH PT. PT LEFT UNIT WITH NURSING STAFF IN WHEEL CHAIR. PT LEFT HOSPITAL IN CAR WITH FAMILY.
== END 2019-08-06 16:10 | disposition home or self-care (01) | DRG 439 ==
LOC: M.ERS 22:27 → M.2W 23:52 → M.TBA-ER 23:52 → M.2W 08-03 01:51
PROVIDERS: Emergency Medicine Emergency Medical Services; Internal Medicine Cardiovascular Disease; ADMIT Internal Medicine
DX: K85.90 Acute pancreatitis without necrosis or infection, unspecified (principal); E44.1 Mild protein-calorie malnutrition; K82.8 Other specified diseases of gallbladder; H91.90 Unspecified hearing loss, unspecified ear; I25.10 Atherosclerotic heart disease of native coronary artery without angina pectoris; E11.51 Type 2 diabetes mellitus with diabetic peripheral angiopathy without gangrene; E78.5 Hyperlipidemia, unspecified; E11.22 Type 2 diabetes mellitus with diabetic chronic kidney disease; I12.9 Hypertensive chronic kidney disease with stage 1 through stage 4 chronic kidney disease, or unspecified chronic kidney disease; N18.3 Chronic kidney disease, stage 3 (moderate); Z95.1 Presence of aortocoronary bypass graft; Z86.73 Personal history of transient ischemic attack (TIA), and cerebral infarction without residual deficits; Z79.899 Other long term (current) drug therapy; Z86.19 Personal history of other infectious and parasitic diseases; Z68.21 Body mass index [BMI] 21.0-21.9, adult; Z80.9 Family history of malignant neoplasm, unspecified; Z84.1 Family history of disorders of kidney and ureter; R16.0 Hepatomegaly, not elsewhere classified

== ENCOUNTER 2019-08-25 18:53 | Inpatient (IN) | payer MEDICARE, OTHER ==
[~2019-08-25] VITALS: Ht 167.6 cm; Wt 68.0 kg
[2019-08-25 18:53] VITALS: BP 118/79
[2019-08-25 19:14] LABS: ABSOLUTE EOSINOPHILS 0.1 thou/uL (0.0-0.7); ABSOLUTE LYMPHOCYTES 1.9 thou/uL (0.8-5.3); ABSOLUTE MONOCYTES 1.4 thou/uL (0.0-1.2); ABSOLUTE NEUTROPHILS 5.4 thou/uL (1.6-8.1); BASOPHILS 0.2 %; EOSINOPHILS 1.1 %; HEMATOCRIT 30.9 % (42.0-52.0); HEMOGLOBIN 10.5 gm/dL (14.0-18.0); LYMPHOCYTES 21.5 %; MCH 30.2 pg (26.0-34.0); MCHC 33.8 g/dL (28.0-37.0); MCV 89.4 fL (80.0-100.0); MONOCYTES 15.9 %; MPV 7.6 fl. (7.2-11.1); NUCLEATED RBCS 0 /100WBC; PLATELET COUNT* 421 thou/uL (150-400); POLYS 61.3 %; RBC 3.46 mil/uL (4.50-6.00); RDW-CV 15.1 % (10.5-14.5); WBC 8.7 thou/uL (4.0-11.0)
[2019-08-25 19:26] LABS: APTT 24.5 Seconds (25.0-31.3); INR 1.1; PROTIME 10.8 Seconds (9.20-11.50)
[2019-08-25 19:30] LABS: CALCIUM 8.8 mg/dL (8.5-10.1); CREATININE 1.7 mg/dL (0.6-1.3); POTASSIUM 4.5 mmol/L (3.5-5.1)
[2019-08-25 19:37] LABS: ALBUMIN 3.2 g/dL (3.4-5.0); CK-MB MASS 0.6 ng/mL (<0.5-3.6); MAGNESIUM 1.9 mg/dL (1.8-2.4); TOTAL BILIRUBIN 0.4 mg/dL (<0.1-1.0); TOTAL PROTEIN 7.9 g/dL (6.4-8.2)
[2019-08-25 21:15] VITALS: BP 117/72
[2019-08-25 22:00] VITALS: BP 176/68
[2019-08-26 00:31] VITALS: BP 124/63
[2019-08-26 04:00] VITALS: BP 142/74
[2019-08-26 04:41] LABS: ALBUMIN 2.6 g/dL (3.4-5.0); CALCIUM 8.4 mg/dL (8.5-10.1); CREATININE 1.6 mg/dL (0.6-1.3); POTASSIUM 4.7 mmol/L (3.5-5.1); TOTAL BILIRUBIN 0.4 mg/dL (<0.1-1.0); TOTAL PROTEIN 6.7 g/dL (6.4-8.2)
[2019-08-26 08:00] VITALS: BP 142/74
[2019-08-26 12:07] VITALS: BP 138/66
--- NOTE | 2019-08-26 14:35 | EKG ---
[place] [address] ELECTROCARDIOGRAM REPORT Name: LUZMA ALCAZAR Room: [address] ADM IN M.R.#: [id number] Admission: 08/25/19 Attend Phys: Teofilo Golden Discharge: Date of : 32 Date of Service: 08/25/191851 Report #: [id number] THIS REPORT FOR: //name// [facility] ED Test Date: 2019-08-25 Test Time: 18:52:19 Pat Name: LUZMA ALCAZAR Department: Room: [facility] Gender: M Touch Up Painter: SOM : 1930 Requested By: Sea Moeller Order Number: [id number] MD: Evelio Sharif Measurements Intervals [place] Rate: 94 P: 39 IL: 235 QRS: -42 QRSD: 93 T: 54 QT: 356 QTc: 446 Interpretive Statements Sinus rhythm Ventricular trigeminy Prolonged IL interval Left axis deviation Probable anteroseptal infarct, old Baseline wander in lead(s) I,III,aVR,aVL Compared to ECG 08/02/2019 23:33:19 No significant changes Electronically Signed On 08-26-2019 14:34:06 CDT by Evelio Sharif [email or web address] <ELECTRONICALLY SIGNED> By: Evelio Sharif MD, [facility] 08/26/19 1434 51 185 Evelio Sharif MD, [facility] /EPI
[2019-08-26 16:18] VITALS: BP 148/65
[2019-08-26 19:30] VITALS: BP 146/63
[2019-08-27 00:13] VITALS: BP 149/52
[2019-08-27 04:18] LABS: ABSOLUTE EOSINOPHILS 0.1 thou/uL (0.0-0.7); ABSOLUTE LYMPHOCYTES 1.7 thou/uL (0.8-5.3); ABSOLUTE MONOCYTES 0.8 thou/uL (0.0-1.2); ABSOLUTE NEUTROPHILS 3.5 thou/uL (1.6-8.1); BASOPHILS 0.3 %; EOSINOPHILS 2.4 %; HEMATOCRIT 27.7 % (42.0-52.0); HEMOGLOBIN 9.3 gm/dL (14.0-18.0); MCH 30.4 pg (26.0-34.0); MCHC 33.6 g/dL (28.0-37.0); MCV 90.3 fL (80.0-100.0); MONOCYTES 13.1 %; MPV 7.5 fl. (7.2-11.1); NUCLEATED RBCS 0 /100WBC; POLYS 57.2 %; RBC 3.07 mil/uL (4.50-6.00); RDW-CV 15.6 % (10.5-14.5); WBC 6.1 thou/uL (4.0-11.0)
[2019-08-27 04:24] VITALS: BP 150/66
[2019-08-27 04:38] LABS: PREALBUMIN 17.9 mg/dL (18.0-35.7)
[2019-08-27 04:46] LABS: PLATELET COUNT* 280 thou/uL (150-400)
[2019-08-27 05:16] LABS: ALBUMIN 2.3 g/dL (3.4-5.0); CALCIUM 7.9 mg/dL (8.5-10.1); CREATININE 1.4 mg/dL (0.6-1.3); POTASSIUM 4.4 mmol/L (3.5-5.1); TOTAL BILIRUBIN 0.4 mg/dL (<0.1-1.0); TOTAL PROTEIN 6.1 g/dL (6.4-8.2)
[2019-08-27 08:00] VITALS: BP 151/63
[2019-08-27 12:00] VITALS: BP 151/65
[2019-08-27 19:50] VITALS: BP 169/70
[2019-08-28] VITALS: BP 136/60
[2019-08-28 04:00] VITALS: BP 137/75
[2019-08-28 08:00] VITALS: BP 162/69
--- NOTE | 2019-08-28 08:19 | CON ---
[address] [address] CONSULTATION Name: LUZMA LACAZAR Room: [address] IN M.R.#: [id number] Admission: 08/25/19 Attend Phys: Mary Anne Mitchell Discharge: Date of : 32 Report #: [id number] THIS REPORT FOR: //name// cc: [facility] - Clinic physician unknown [facility] - Clinic physician unknown ~ THIS REPORT FOR: //name// CC: [facility] unknown Teofilo Golden DATE OF SERVICE: 08/26/2019 HISTORY OF PRESENT ILLNESS: This is a pleasant 88-year-old gentleman with recent diagnosis of a liver mass. The patient presents with abdominal pain that appears to have resolved at this time. The patient was recently hospitalized on 08/04 when he was diagnosed with a large 9 cm hepatic mass. 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 The patient was supposed to follow up with Dr. Christianson as outpatient, but he has not had a chance to do so. 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 Through the [facility], I have been informed that the family had a discussion and have decided to go with palliative route. They do not want any aggressive measures at this time. PAST MEDICAL HISTORY: Significant for coronary artery disease, diabetes, hypertension, hyperlipidemia, stroke. PAST SURGICAL HISTORY: The patient had neck surgery in the remote past and cardiac bypass in 2005 or 2006. SOCIAL HISTORY: The patient denies alcohol use or recreational drug use. He was a smoker in the past. FAMILY HISTORY: No family history of colon cancer or [place] related neoplasia. REVIEW OF SYSTEMS: Comprehensive 10-point review of systems is negative except for what was mentioned in the HPI. PHYSICAL EXAMINATION: VITAL SIGNS: Temperature 36.7, pulse rate 97, blood pressure 142/74, pulse ox 98% on room air. GENERAL: The patient is awake and alert. HEENT: Mucous membranes are moist. There is no congestion. LUNGS: Clear to auscultation bilaterally. CARDIOVASCULAR: Rate and rhythm regular. S1, S2 present. ABDOMEN: Soft. There is no tenderness, [place] [address] CONSULTATION Name: LUZMA ALCAZAR Room: [address] IN [facility]#: [id number] Admission: 08/25/19 Attend Phys: Mary Anne Mitchell Discharge: Date of : 32 Report #: [id number] EXTREMITIES: Warm, well perfused. There is no edema. LABORATORY DATA: Hemoglobin 10.5, hematocrit 30.9, platelet count 421, WBC count 8.7. INR 1.1. Sodium 138, potassium 4.9, chloride 107, bicarbonate 29, BUN 29, creatinine 1.6. Total bilirubin 0.4, AST 49, ALT 66, alkaline phosphatase 149. Lipase on presentation 1164. ASSESSMENT AND PLAN: Pleasant 88-year-old gentleman with history of liver mass, presenting with abdominal pain and mildly elevated lipase. The patient's pain is well controlled at this time. Ideally, we would recommend an EUS to see if this is a primary hepatic versus pancreatic lesion, metastatic to the liver. However, the family does not want to proceed with any measures at this time and wants to take the palliative route. I have offered the patient EUS-guided celiac plexus block if he indeed develop severe abdominal pain down the line. No further intervention is required at this time. Thank you for this consultation. <ELECTRONICALLY SIGNED> By: Richard Angel MD 08/28/19 0819 1149 [id number] Angel MD /nt
[2019-08-28 10:39] VITALS: BP 162/69
[2019-08-28] MEDS ORDERED: OXYCODONE HCL 55 MG PO (10:39)
== END 2019-08-28 11:45 | disposition home or self-care (01) | DRG 438 ==
LOC: M.ERS 18:53 → M.2W 20:09 → M.TBA-ER 20:09 → M.2W 21:20
PROVIDERS: Family Medicine; Internal Medicine; ADMIT Internal Medicine
DX: K85.90 Acute pancreatitis without necrosis or infection, unspecified (principal); E43 Unspecified severe protein-calorie malnutrition; N17.0 Acute kidney failure with tubular necrosis; C22.0 Liver cell carcinoma; I25.10 Atherosclerotic heart disease of native coronary artery without angina pectoris; I12.9 Hypertensive chronic kidney disease with stage 1 through stage 4 chronic kidney disease, or unspecified chronic kidney disease; E78.5 Hyperlipidemia, unspecified; Z51.5 Encounter for palliative care; N18.3 Chronic kidney disease, stage 3 (moderate); B18.2 Chronic viral hepatitis C; E11.22 Type 2 diabetes mellitus with diabetic chronic kidney disease; Z86.73 Personal history of transient ischemic attack (TIA), and cerebral infarction without residual deficits; Z79.01 Long term (current) use of anticoagulants; Z79.899 Other long term (current) drug therapy; Z95.1 Presence of aortocoronary bypass graft; Z87.891 Personal history of nicotine dependence; Z68.24 Body mass index [BMI] 24.0-24.9, adult

== ENCOUNTER 2019-09-26 14:45 | Inpatient (IN) | payer MEDICARE, OTHER ==
[~2019-09-26] VITALS: Ht 162.6 cm; Wt 66.7 kg
[~2019-09-26 14:45] MED LIST changes: +OXYCODONE HCL 55 MG PO
[2019-09-26 14:46] VITALS: BP 148/76
[2019-09-26] MEDS ORDERED: FLOMAX0.4 MG PO (14:59)
[2019-09-26] MEDS ORDERED: ONDANSETRON HCL4 M2 PO (15:00)
[2019-09-26] MEDS ORDERED: AREDS 2 (15:01)
[2019-09-26 15:29] LABS: ABSOLUTE MONOCYTES 1.6 thou/uL (0.0-1.2); ABSOLUTE NEUTROPHILS 10.5 thou/uL (1.6-8.1); BASOPHILS 0.3 %; HEMATOCRIT 35.2 % (42.0-52.0); HEMOGLOBIN 11.7 gm/dL (14.0-18.0); LYMPHOCYTES 7.4 %; MCHC 33.4 g/dL (28.0-37.0); MONOCYTES 12.4 %; MPV 8.1 fl. (7.2-11.1); NUCLEATED RBCS 0 /100WBC; PLATELET COUNT* 207 thou/uL (150-400); POLYS 79.9 %; RBC 3.91 mil/uL (4.50-6.00); RDW-CV 14.6 % (10.5-14.5); WBC 13.1 thou/uL (4.0-11.0)
[2019-09-26 15:36] LABS: CALCIUM 8.4 mg/dL (8.5-10.1); CREATININE 2.1 mg/dL (0.6-1.3); POTASSIUM 4.3 mmol/L (3.5-5.1)
[2019-09-26 15:41] LABS: ALBUMIN 3.2 g/dL (3.4-5.0); TOTAL BILIRUBIN 1.2 mg/dL (<0.1-1.0); TOTAL PROTEIN 7.9 g/dL (6.4-8.2)
[2019-09-26] MEDS ORDERED: NORFLEX100 MG PO (18:08)
--- NOTE | 2019-09-26 20:52 | NUR ---
REPORT GIVEN TO AKANKSHA RIOS. PT BEING TRANSPORTED TO ROOM 223 FOR ADMISSION.
[2019-09-26 20:54] VITALS: BP 150/76
[2019-09-26 21:30] VITALS: BP 131/58
[2019-09-27 04:21] VITALS: BP 142/60
--- NOTE | 2019-09-27 05:21 | NUR ---
PT ADMITTED TO FLOOR AT 2115 ACCOMPANIED BY SON IN LAW PT IS COMPLETELY DEAF. ASSESSMENTS COMPLETED AT BEDSIDE WITH PT AND FAMILY MEMBER. NO C/O PAIN OR DISCOMFORT NOTED. FALL PRECAUSTIONS IN PLACE, BED ALARM ON, AND CALL LIGHT WITHIN REACH. HOURLY ROUNDING COMPLETED FOR SAFETY.
[2019-09-27 05:43] LABS: CALCIUM 8.1 mg/dL (8.5-10.1); CREATININE 1.7 mg/dL (0.6-1.3); POTASSIUM 4.8 mmol/L (3.5-5.1)
[2019-09-27 08:20] VITALS: BP 142/63
[2019-09-27 10:17] LABS: CALCIUM 7.9 mg/dL (8.5-10.1); CREATININE 1.7 mg/dL (0.6-1.3); MAGNESIUM 1.7 mg/dL (1.8-2.4); POTASSIUM 4.5 mmol/L (3.5-5.1)
--- NOTE | 2019-09-27 11:15 | NUR ---
PT TRANSFERRED TO UNIT. PT ORIENTED TO ROOM. PT DENIED ANY NEEDS AT THIS TIME. ELL[place]OTT CONTINUE TO MONITOR.
[2019-09-27 16:03] VITALS: BP 138/64
--- NOTE | 2019-09-27 17:03 | NUR ---
pt remained alert and oriented. pt resting in bed. pt worked with therapy and sat in chair. fall risk precautions in place. hourly rounding completed. will continue to monitor.
[2019-09-27 18:15] LABS: URINE BILIRUBIN NEGATIVE (Negative); URINE BLOOD NEGATIVE (Negative); URINE CLARITY CLEAR; URINE COLOR YELLOW; URINE GLUCOSE-RANDOM NEGATIVE (Negative); URINE KETONES NEGATIVE (Negative); URINE LEUKOCYTES-REFLEX NEGATIVE (Negative); URINE NITRITE-REFLEX NEGATIVE (Negative); URINE PROTEIN NEGATIVE (Negative); URINE UROBILINOGEN 0.2 E.U./dl (0.2-1.0)
[2019-09-27 20:45] VITALS: BP 161/73
--- NOTE | 2019-09-28 02:19 | NUR ---
ASSUMED CARE AT 1930. SHIFT ASSESSMENT COMPLETED CHARTED. REQUEST TO AMBULATE TO BR FOR VOID. REFUSED GAIT BELT AND WALKER. AMBULATED WITH STEADY GAIT AND CGA. MEDS PER ORDER. IVF'S OF LAST LITER ORDERED HANGING. HS BLOOD SUGAR 126. DECLINED HS SNACK. MEDICATED X 1 FOR BACK PAIN TO GOOD EFFECT. MAGNESIUM REPLACEMENT IN PROGRESS. VITAL SIGNS STABLE. PATIENT CURRENTLY RESTING WITH EYES CLOSED. CALL LIGHT IN REACH. BED ALARM ON FOR SAFETY. HOURLY ROUNDS. CONTINUE TO MONITOR.
--- NOTE | 2019-09-28 06:17 | NUR ---
LAST OF ORDERED IVF COMPLETE AT 0445. SECOND DOSE ORAL MAGNESIUM REPLACEMENT ALSO GIVEN. REDRAW FOR THIS AM. NO OTHER CHANGES FROM LAST ENTRY. HOURLY ROUNDING. CONTINUE TO MONITOR.
[2019-09-28 07:30] VITALS: BP 131/67
[2019-09-28] MEDS ORDERED: PAIN RELIEVER500 MG PO (08:06)
[2019-09-28] MEDS ORDERED: LIDOPATCH1 EACH TOP (08:06)
[2019-09-28 08:26] VITALS: BP 131/67
[2019-09-28 08:56] VITALS: BP 131/67
[2019-09-28 10:55] VITALS: BP 131/67
--- NOTE | 2019-09-28 10:56 | NUR ---
PT GIVEN DISCHARGE INFORMATION AND CD OF SCANS. IV REMOVED. FAMILY CALLED AND NOTIFIED OF DISCHARGE. PT BELONGINGS GATHERED. HOME HEALTH SET UP. PT REFUSED FALL RISK PRECAUTIONS DURING SHIFT. HOURLY ROUNDING COMPLETED. WILL CONTINUE TO MONITOR.
--- NOTE | 2019-09-28 12:11 | EKG ---
[place] [address] ELECTROCARDIOGRAM REPORT Name: LUZMA ALCAZAR Room: [address] IN M.R.#: [id number] Admission: 09/26/19 Attend Phys: Alessandra Nieto Discharge: 09/28/19 Date of : 32 Date of Service: 09/26/19 1839 Report #: [id number] THIS REPORT FOR: //name// [facility] ED Test Date: 2019-09-26 Test Time: 18:39:38 Pat Name: LUZMA ALCAZAR Department: Room: [facility] Gender: M Solvent Station Attendant: : 1930 Requested By: Deniz Frausto Order Number: [id number] MD: Rodrigo Dumont Measurements Intervals [place] Rate: 101 P: 48 CO: 196 QRS: -32 QRSD: 97 T: 49 QT: 375 QTc: 487 Interpretive Statements Sinus tachycardia Ventricular bigeminy Left axis deviation Compared to ECG 08/25/2019 18:52:19 First degree AV block no longer present Myocardial infarct finding no longer present Electronically Signed On 09-28-2019 12:08:51 CDT by Rodrigo Dumont [email or web address] <ELECTRONICALLY SIGNED> By: Rodrigo Dumont MD, [facility] 09/28/19 1208 1839 1839 Rodrigo Dumont MD, [facility] /EPI
== END 2019-09-28 10:58 | disposition home health service (06) | DRG 552 ==
LOC: M.ERS 14:45 → M.TBA-ER 18:55 → M.3W 18:55 → M.2W 20:57 → M.3W 09-27 11:02
PROVIDERS: Internal Medicine; Personal Emergency Response Attendant; ADMIT Internal Medicine; ATTEND Internal Medicine
DX: M47.816 Spondylosis without myelopathy or radiculopathy, lumbar region (principal); N17.9 Acute kidney failure, unspecified; E44.1 Mild protein-calorie malnutrition; C22.0 Liver cell carcinoma; R65.10 Systemic inflammatory response syndrome (SIRS) of non-infectious origin without acute organ dysfunction; F44.4 Conversion disorder with motor symptom or deficit; I25.10 Atherosclerotic heart disease of native coronary artery without angina pectoris; E11.51 Type 2 diabetes mellitus with diabetic peripheral angiopathy without gangrene; N18.3 Chronic kidney disease, stage 3 (moderate); M54.5 Low back pain; I12.9 Hypertensive chronic kidney disease with stage 1 through stage 4 chronic kidney disease, or unspecified chronic kidney disease; E11.22 Type 2 diabetes mellitus with diabetic chronic kidney disease; B19.20 Unspecified viral hepatitis C without hepatic coma; Z92.21 Personal history of antineoplastic chemotherapy; Z79.899 Other long term (current) drug therapy; Z95.1 Presence of aortocoronary bypass graft; Z86.73 Personal history of transient ischemic attack (TIA), and cerebral infarction without residual deficits; Z87.891 Personal history of nicotine dependence; Z68.25 Body mass index [BMI] 25.0-25.9, adult